=== PATIENT | female | born 2000 | race Caucasian/White ===

== ENCOUNTER 2021-01-29 08:43 | Outpatient (CLI) | payer BC | END 2021-01-29 08:44 | disposition home or self-care (01) | LOC: CSHCT 08:43 | PROVIDERS: ATTEND Physician Assistant Medical | DX: K50.80 Crohn's disease of both small and large intestine without complications (principal); R10.30 Lower abdominal pain, unspecified; K62.5 Hemorrhage of anus and rectum | CPT/HCPCS: 74177 ==